=== PATIENT | male | born 1935 | race Caucasian/White ===

== ENCOUNTER → 2018-05-29 | Outpatient (CLI) | payer OTHER ==
[~2018-05-29] MED LIST: ASPI81EC PO; ATOR10 PO; ATOR80 PO; CLOP75 PO; LEVSOD25 PO; METO25ER PO; MULTAQ PO; WARF5 PO; [UNRECOGNIZED DRUG - OTHER] PO
[2018-05-29 19:16] LABS: BASOPHILS ABSOLUTE AUTO 0.02 K/mm3 (0.00-0.23); BASOPHILS PERCENT AUTO 0 % (0-2); EOSINOPHILS ABSOLUTE AUTO 0.01 K/mm3 (0.00-0.68); EOSINOPHILS PERCENT AUTO 0 % (0-6); Hematocrit 38.7 % (37.0-53.0); Hemoglobin 13.1 g/dL (13.5-17.5); IMMATURE GRAN ABSOLUTE AUTO 0.03 K/mm3 (0.00-0.10); IMMATURE GRAN PERCENT AUTO 0 % (0-1); LYMPHOCYTES ABSOLUTE AUTO 0.52 K/mm3 (0.84-5.20); LYMPHOCYTES PERCENT AUTO 8 % (21-46); MONOCYTES ABSOLUTE AUTO 0.08 K/mm3 (0.16-1.47); MONOCYTES PERCENT AUTO 1 % (4-13); Mean Corpuscular HGB 29.4 pg (26.0-34.0); Mean Corpuscular HGB Conc 33.9 g/dL (31.5-36.5); Mean Corpuscular Volume 87 fL (80-100); Mean Platelet Volume 11.8 fL (9.1-12.4); NEUTROPHILS ABSOLUTE AUTO 6.08 K/mm3 (1.96-9.15); NEUTROPHILS PERCENT AUTO 90 % (41-73); RDW Coefficient Variation 12.1 % (11.7-14.2); RDW Standard Deviation 38.7 fL (35.1-46.3); Red Blood Cell Count 4.45 M/mm3 (4.30-5.90); White Blood Cell Count 6.74 K/mm3 (4.00-11.30)
[2018-05-29 19:25] LABS: Platelet Count 45 K/mm3 (150-400)
[2018-05-29 19:32] LABS: Albumin, Blood 3.6 g/dL (3.4-5.0); Albumin/Globulin Ratio 0.9 (0.8-1.8); Bun/Creatinine Ratio 12.6 (12.0-20.0); Calcium, Blood 8.7 mg/dL (8.5-10.1); Creatinine, Blood 1.51 mg/dL (0.60-1.20); Globulin, Blood 3.8 g/dL (2.2-4.0); Potassium, Blood 4.5 mmol/L (3.5-5.5); Total Protein, Blood 7.4 g/dL (6.4-8.2)
== END ==
LOC: LAB 18:32 → LAB SHORT 18:32
PROVIDERS: Physician Assistant
DX: R11.10 Vomiting, unspecified (principal); R53.1 Weakness
CPT/HCPCS: 80053; 85025

== ENCOUNTER 2019-04-10 17:26 | Emergency (ER) | payer OTHER ==
[~2019-04-10] VITALS: Ht 182.9 cm; Wt 81.7 kg
[~2019-04-10 17:26] MED LIST changes: +ATOR20 PO; +DRON400T PO; -LEVSOD25 PO; +LEVSOD75 PO; -MULTAQ PO; -[UNRECOGNIZED DRUG - OTHER] PO
[2019-04-10 17:51] LABS: BASOPHILS ABSOLUTE AUTO 0.04 K/mm3 (0.00-0.23); BASOPHILS PERCENT AUTO 1 % (0-2); EOSINOPHILS ABSOLUTE AUTO 0.35 K/mm3 (0.00-0.68); EOSINOPHILS PERCENT AUTO 8 % (0-6); Hematocrit 36.1 % (37.0-53.0); Hemoglobin 12.1 g/dL (13.5-17.5); IMMATURE GRAN ABSOLUTE AUTO 0.03 K/mm3 (0.00-0.10); IMMATURE GRAN PERCENT AUTO 1 % (0-1); LYMPHOCYTES ABSOLUTE AUTO 1.45 K/mm3 (0.84-5.20); LYMPHOCYTES PERCENT AUTO 31 % (21-46); MONOCYTES ABSOLUTE AUTO 0.23 K/mm3 (0.16-1.47); MONOCYTES PERCENT AUTO 5 % (4-13); Mean Corpuscular HGB 29.4 pg (26.0-34.0); Mean Corpuscular HGB Conc 33.5 g/dL (31.5-36.5); Mean Corpuscular Volume 88 fL (80-100); Mean Platelet Volume 11.4 fL (9.1-12.4); NEUTROPHILS ABSOLUTE AUTO 2.57 K/mm3 (1.96-9.15); NEUTROPHILS PERCENT AUTO 55 % (41-73); Red Blood Cell Count 4.12 M/mm3 (4.30-5.90); White Blood Cell Count 4.67 K/mm3 (4.00-11.30)
[2019-04-10 17:58] LABS: Platelet Count 46 K/mm3 (150-400)
[2019-04-10 18:05] LABS: Alanine Aminotransfer (ALT/SGP 17 U/L (12-78); Albumin, Blood 3.2 g/dL (3.4-5.0); Albumin/Globulin Ratio 0.8 (0.8-1.8); Alk Phos 97 U/L (50-136); Anion Gap 9 mmol/L (6-16); Aspartate Aminotrans (AST/SGOT 13 U/L (12-37); Bilirubin, Total 0.4 mg/dL (0.1-1.0); Blood Urea Nitrogen 25 mg/dL (8-24); Bun/Creatinine Ratio 12.4 (12.0-20.0); CO2, Blood 22 mmol/L (21-32); Calcium, Blood 8.5 mg/dL (8.5-10.1); Chloride, Blood 109 mmol/L (98-108); Creatinine, Blood 2.02 mg/dL (0.60-1.20); Globulin, Blood 3.9 g/dL (2.2-4.0); Glomerular Filtration Rate 33 (60-); Glucose, Blood 118 mg/dL (70-99); Potassium, Blood 3.8 mmol/L (3.5-5.5); Sodium, Blood 140 mmol/L (136-145); Total Protein, Blood 7.1 g/dL (6.4-8.2); Troponin I <0.015 ng/mL (0.000-0.040)
[2019-04-10] MEDS ORDERED: Calcitonin-Sal3.7 ML (18:22)
[2019-04-10] MEDS ORDERED: TRAM50 PO (18:23)
[2019-04-10] MEDS ORDERED: XARELTO2.5 MG PO (18:23)
[2019-04-10] MEDS ORDERED: TAMS.4ER PO (18:26)
== END 2019-04-10 18:47 | disposition home or self-care (01) ==
LOC: ER 17:26
PROVIDERS: Physician Assistant
DX: R55 Syncope and collapse (principal); D69.3 Immune thrombocytopenic purpura; Z79.899 Other long term (current) drug therapy; Z79.01 Long term (current) use of anticoagulants; I25.2 Old myocardial infarction; I48.91 Unspecified atrial fibrillation; E03.9 Hypothyroidism, unspecified; E78.00 Pure hypercholesterolemia, unspecified
CPT/HCPCS: 71046; 80053; 84484; 85025; 93005; 93010; 99284-25

== ENCOUNTER 2023-03-31 11:42 | Inpatient (IN) | payer OTHER ==
[~2023-03-31] VITALS: Ht 170.2 cm; Wt 77.2 kg
[~2023-03-31 11:42] MED LIST changes: +Calcitonin-Sal3.7 ML; +TAMS.4ER PO; +TRAM50 PO; +XARELTO2.5 MG PO
[2023-04-01] VITALS (19 sets, daily range): BP systolic 90–120; BP diastolic 48–75
[2023-04-01] MEDS ORDERED: ELIQUIS2.5 MG PO (10:57)
[2023-04-01] MEDS ORDERED: ACET500 PO (16:28)
[2023-04-01] MEDS ORDERED: OXYC5 PO (16:29)
--- NOTE | 2023-04-01 18:15 | NUR ---
SHIFT SUMMARY PT A&OX4, VSS/RA, TAMARA PO H20, JELLO AND CRACKERS, SLEEPING/WAKENS EASILY, PAIN MANAGED WITH TYLENOL AND TORADOL, AWAITING POST OP VOID. WILL REPORT TO ONCOMING ASHLIE RN.
--- NOTE | 2023-04-01 18:36 | NUR ---
"Spiritual Care | Pt. request. Pt. is awake in bed and welcomes my visit. Pt. is a little unsettled as this hospitalization is the second one on his hip this spring. Pt. verbalizes that he is a man of ernie. Facilitated a life review and considered matters of ernie and belief. Pt. displayed evidence of mild emotion as we considered past relationships. Prayed for Pt. Pt. 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
[2023-04-02 04:25] VITALS: BP 101/58
[2023-04-02 05:15] LABS: BASOPHILS ABSOLUTE AUTO 0.04 K/mm3 (0.00-0.23); BASOPHILS PERCENT AUTO 1 % (0-2); EOSINOPHILS ABSOLUTE AUTO 0.03 K/mm3 (0.00-0.68); EOSINOPHILS PERCENT AUTO 1 % (0-6); Hematocrit 25.4 % (37.0-53.0); Hemoglobin 8.4 g/dL (13.5-17.5); IMMATURE GRAN ABSOLUTE AUTO 0.03 K/mm3 (0.00-0.10); IMMATURE GRAN PERCENT AUTO 1 % (0-1); LYMPHOCYTES ABSOLUTE AUTO 0.79 K/mm3 (0.84-5.20); LYMPHOCYTES PERCENT AUTO 12 % (21-46); MONOCYTES ABSOLUTE AUTO 0.38 K/mm3 (0.16-1.47); MONOCYTES PERCENT AUTO 6 % (4-13); Mean Corpuscular HGB 28.7 pg (26.0-34.0); Mean Corpuscular HGB Conc 33.1 g/dL (31.5-36.5); Mean Corpuscular Volume 87 fL (80-100); NEUTROPHILS ABSOLUTE AUTO 5.17 K/mm3 (1.96-9.15); NEUTROPHILS PERCENT AUTO 80 % (41-73); Platelet Count 61 K/mm3 (150-400); RDW Coefficient Variation 14.5 % (11.7-14.2); RDW Standard Deviation 45.6 fL (35.1-46.3); Red Blood Cell Count 2.93 M/mm3 (4.30-5.90); White Blood Cell Count 6.44 K/mm3 (4.00-11.30)
--- NOTE | 2023-04-02 05:18 | NUR ---
SHIFT SUMMARY PT POD 0 L ALVIN HIP WITH REMOVAL OF HARDWARE. PT HAS RESTED MOST OF THE NIGHT, HE HAS BEEN UP AND AMBULATED TO THE BATHROOM WITH FWW, SLOW TO GET OOB BUT STARTED TO MOVE EASIER ONCE OOB. PT EXPERIENCED SLIGHT NAUSEA AFTER GETTING UP THAT RESOLVED AFTER HE RETURNED TO BED. DRESSING TO LEFT HIP DRY AND INTACT. PT TOLERATING PO INTAKE BUT NOT DRINKING VERY MUCH WATER DESPITE ENCOURAGEMENT TO DO SO. PT HAS NOT YET VOIDED. ATTEPTED SEVERAL TIMES WITHOUT SUCCESS. IVF INFUSING PER EMAR. PT BLADDER SCANNED TWICE THIS SHIFT, LAST SCAN 307 MLS. DISSCUSED WITH SLOT ATTENDANT . POST OP VITALS STABLE. BED IN LOWEST POSITION, CALL LIGHT WITHIN REACH.
[2023-04-02 05:32] LABS: Bun/Creatinine Ratio 15.5 (12.0-20.0); Calcium, Blood 8.4 mg/dL (8.5-10.1); Creatinine, Blood 1.68 mg/dL (0.60-1.20); Potassium, Blood 4.6 mmol/L (3.5-5.5)
[2023-04-02 07:31] VITALS: BP 114/59
[2023-04-02 10:22] VITALS: BP 135/69
[2023-04-02 10:24] VITALS: BP 116/68
--- NOTE | 2023-04-02 10:35 | NUR ---
Pt. is awake in a recliner and welcomes my visit. Pt. is pleasant but displays ocassional emotion, as he shares his life story. Re-establish rapport and consider matters of ernie and belief. Grief support was also given as the Pt. shares of Spouse and siblings who have passed. Pt. displays evidence of trust and engagement. Prayed with Pt. Pt. verbalizes expectation of discharge. Pt. also verbalizes gratitude for the spiritual care visit.
--- NOTE | 2023-04-02 12:17 | NUR ---
DISCHARGE SUMMARY PT A&OX4, VSS/RA, TAMARA PO, VOIDING, AMB SBA FWW/GB, UP TO CHAIR, IV DC'D. DC INS PROVIDED. PT AND FAMILY REP UNDERSTANDING THOSE INSTRUCTIONS INCLUDING ADD AQUACEL DRESSING IF NEEDED/OTHERWISE LEAVE DRESSING IN PLACE-DO NOT REMOVE, FU APPT W/ SURGEON, START ELIQUIS, HAS MEDS AT HOME. LEFT FLOOR VIA WC WITH STENCIL MAKER TO GO HOME WITH FAMILY, WITH ALL PERSONAL POSSESSIONS INCLUDING DC PACKET AND AQUACEL DRESSING.
[2023-04-02] MEDS ORDERED: ELIQUIS5 M2 PO (13:24)
== END 2023-04-02 12:07 | disposition home or self-care (01) | DRG 468 ==
LOC: SURS 04-01 09:58 → PRE IP 04-01 12:30 → SURS 04-01 16:26
PROVIDERS: ADMIT Orthopaedic Surgery
PROC: 30233R1 Transfusion of Nonautologous Platelets into Peripheral Vein, Percutaneous Approach (ICD-10-PCS; 2023-04-01)
PROC: 0SPS0JZ Removal of Synthetic Substitute from Left Hip Joint, Femoral Surface, Open Approach (ICD-10-PCS; 2023-04-01)
PROC: 0SRS0JA Replacement of Left Hip Joint, Femoral Surface with Synthetic Substitute, Uncemented, Open Approach (ICD-10-PCS; principal; 2023-04-01 12:30)
PROC: 30233N1 Transfusion of Nonautologous Red Blood Cells into Peripheral Vein, Percutaneous Approach (ICD-10-PCS; 2023-04-01 12:30)
DX: S72.002K Fracture of unspecified part of neck of left femur, subsequent encounter for closed fracture with nonunion (principal); M16.12 Unilateral primary osteoarthritis, left hip; Z87.891 Personal history of nicotine dependence; Z98.890 Other specified postprocedural states; Z97.8 Presence of other specified devices
CPT/HCPCS: 36415; 72170; 80048; 83735; 85025; 86850; 86900; 86901; 97110; 97161; 97165; 97530; 97535; A9270; C1776; J0171; J0690; J0735; J1885; J2704; J2710; J2795; J3010; J7040; J7120; P9053

== ENCOUNTER 2023-04-02 13:09 | Inpatient (IN) | payer OTHER ==
[~2023-04-02] VITALS: Ht 182.9 cm; Wt 78.1 kg
[~2023-04-02 13:09] MED LIST changes: +ACET500 PO; +ELIQUIS2.5 MG PO; +OXYC5 PO
[2023-04-02] MEDS ORDERED: ELIQUIS5 M2 PO (13:24)
[2023-04-02 15:35] LABS: BASOPHILS ABSOLUTE AUTO 0.03 K/mm3 (0.00-0.23); BASOPHILS PERCENT AUTO 0 % (0-2); EOSINOPHILS ABSOLUTE AUTO 0.03 K/mm3 (0.00-0.68); EOSINOPHILS PERCENT AUTO 0 % (0-6); Hematocrit 25.2 % (37.0-53.0); Hemoglobin 8.2 g/dL (13.5-17.5); IMMATURE GRAN ABSOLUTE AUTO 0.03 K/mm3 (0.00-0.10); IMMATURE GRAN PERCENT AUTO 0 % (0-1); LYMPHOCYTES ABSOLUTE AUTO 0.61 K/mm3 (0.84-5.20); LYMPHOCYTES PERCENT AUTO 8 % (21-46); MONOCYTES ABSOLUTE AUTO 0.42 K/mm3 (0.16-1.47); MONOCYTES PERCENT AUTO 5 % (4-13); Mean Corpuscular HGB 28.5 pg (26.0-34.0); Mean Corpuscular HGB Conc 32.5 g/dL (31.5-36.5); Mean Corpuscular Volume 88 fL (80-100); Mean Platelet Volume 10.5 fL (9.1-12.4); NEUTROPHILS ABSOLUTE AUTO 6.73 K/mm3 (1.96-9.15); NEUTROPHILS PERCENT AUTO 86 % (41-73); RDW Coefficient Variation 14.5 % (11.7-14.2); RDW Standard Deviation 46.9 fL (35.1-46.3); Red Blood Cell Count 2.88 M/mm3 (4.30-5.90); White Blood Cell Count 7.85 K/mm3 (4.00-11.30)
[2023-04-02 15:45] LABS: Albumin, Blood 2.8 g/dL (3.4-5.0); Bilirubin, Total 0.5 mg/dL (0.1-1.0); Bun/Creatinine Ratio 15.8 (12.0-20.0); Calcium, Blood 8.3 mg/dL (8.5-10.1); Creatinine, Blood 1.65 mg/dL (0.60-1.20); Globulin, Blood 2.8 g/dL (2.2-4.0); Potassium, Blood 4.6 mmol/L (3.5-5.5); Total Protein, Blood 5.6 g/dL (6.4-8.2)
[2023-04-02 15:49] LABS: Platelet Count 46 K/mm3 (150-400)
[2023-04-02 17:10] LABS: Source, Urine Clean Catch
[2023-04-02 17:18] LABS: Appearance, Urine Clear (Clear); Bilirubin, Urine Neg (Neg); Blood, Urine Neg (Neg); Color, Urine Yellow (P-Yellow); Glucose Qualitative, Urine Neg (Neg); Ketones, Urine 1+ (Neg); Leukocyte Esterase, Urine Neg (Neg); Nitrite, Urine Neg (Neg); Protein, Urine Neg (Neg); Urobilinogen, Urine NORM (Normal)
[2023-04-02 22:20] VITALS: BP 120/61
--- NOTE | 2023-04-02 22:34 | NUR ---
PT ARRIVAL PT ARRIVED TO THE FLOOR AT APPROX 2220- A/0 X4. VITAL SIGNS TAKEN BY INTERIOR SYSTEMS CARPENTER. PT CHANGED INTO GOWN AND NEW ATTENDS, AND WARM BLANKETS GIVEN. PAIN REPORTED IN L HIP, NOT REQUESTING PAIN MEDICATION AT THIS TIME.
[2023-04-03] VITALS (13 sets, daily range): BP systolic 92–124; BP diastolic 51–73
[2023-04-03 04:20] LABS: Hematocrit 21.7 % (37.0-53.0); Hemoglobin 7.1 g/dL (13.5-17.5); Mean Corpuscular HGB 28.5 pg (26.0-34.0); Mean Corpuscular HGB Conc 32.7 g/dL (31.5-36.5); Mean Corpuscular Volume 87 fL (80-100); Mean Platelet Volume 11.2 fL (9.1-12.4); RDW Coefficient Variation 14.5 % (11.7-14.2); Red Blood Cell Count 2.49 M/mm3 (4.30-5.90); White Blood Cell Count 5.07 K/mm3 (4.00-11.30)
[2023-04-03 04:41] LABS: Calcium, Blood 8.1 mg/dL (8.5-10.1); Creatinine, Blood 1.57 mg/dL (0.60-1.20); Magnesium, Blood 1.7 mg/dL (1.6-2.4)
[2023-04-03 04:45] LABS: Platelet Count 41 K/mm3 (150-400)
--- NOTE | 2023-04-03 11:45 | NUR ---
Pt. is awake in bed and welcomes my visit. Family members are present. Pt. is pleasant. Pt. and family updated this cancer spec regarding Pts. readmission. Re-established rapport and facilitated encouraging conversation. Pt. displays evidence of being engaged and aware. Will monitor Pt. and remain available to Pt. and family.
[2023-04-03 13:53] LABS: Percent Saturation 13.1 % (20.0-50.0)
[2023-04-03 13:53] LABS: Hematocrit 27.4 % (37.0-53.0); Hemoglobin 8.9 g/dL (13.5-17.5)
--- NOTE | 2023-04-03 17:59 | NUR ---
SHIFT SUMMARY: POD 2 LEFT HIP REPAIR- POST FALL PATIENT IS A&OX4. HIS SBP HAVE BEEN BETWEEN HIGH 90'S TO LOW 100'S WITH NO SYMPTOMS OF DIZZINESS/LIGHTHEADEDNESS. THIS NURSE NOTIFIED DR. BARBOSA WHO ORDERED PO PRO-AMATINE. HIS HEART RATE IS IN AFIB BETWEEN 80'S-LOW 100 BPM. HIS LEFT HIP HAS A PRIMEO DRESSING THAT IS C/D/I. HE DENIES NUMBNESS OR TINGLING. HE IS ABLE TO MOVE ALL FINGERS AND TOES WHEN ASKED. HE IS TOLERATING PO INTAKE AND IS VOIDING. PATIENT DID RECIEVE 1 UNIT OF BLOOD SINCE HIS HGB WAS 7.1 BUT AFTER THE UNIT IT IS 8.9 NOW. HIS LEFT HIP IS WBAT. HE DID WORK WITH PT THIS AFTERNOON BUT WAS A 2 PERSON MODERATE ASSIST TO RECLINER CHAIR WITH FWW AND GAIT BELT. PATIENT IS STILL SITTING IN THE RECLINER CHAIR WITH LEGS ELEVATED AND CALL LIGHT IN REACH. FAMILY AT BEDSIDE. THE PLAN IS TO REPEAT LABS IN THE MORNING AND TO WORK WITH PHYSICAL THERAPY AGAIN TOMORROW TO BE RE-EVALUATED.
[2023-04-04 04:50] LABS: BASOPHILS ABSOLUTE AUTO 0.03 K/mm3 (0.00-0.23); BASOPHILS PERCENT AUTO 0 % (0-2); EOSINOPHILS ABSOLUTE AUTO 0.18 K/mm3 (0.00-0.68); EOSINOPHILS PERCENT AUTO 3 % (0-6); Hematocrit 24.9 % (37.0-53.0); Hemoglobin 8.3 g/dL (13.5-17.5); IMMATURE GRAN ABSOLUTE AUTO 0.03 K/mm3 (0.00-0.10); IMMATURE GRAN PERCENT AUTO 0 % (0-1); LYMPHOCYTES ABSOLUTE AUTO 1.24 K/mm3 (0.84-5.20); LYMPHOCYTES PERCENT AUTO 17 % (21-46); MONOCYTES ABSOLUTE AUTO 0.47 K/mm3 (0.16-1.47); MONOCYTES PERCENT AUTO 7 % (4-13); Mean Corpuscular HGB 28.8 pg (26.0-34.0); Mean Corpuscular HGB Conc 33.3 g/dL (31.5-36.5); Mean Corpuscular Volume 87 fL (80-100); Mean Platelet Volume 11.2 fL (9.1-12.4); NEUTROPHILS ABSOLUTE AUTO 5.17 K/mm3 (1.96-9.15); NEUTROPHILS PERCENT AUTO 73 % (41-73); Platelet Count 52 K/mm3 (150-400); RDW Coefficient Variation 14.3 % (11.7-14.2); RDW Standard Deviation 45.4 fL (35.1-46.3); Red Blood Cell Count 2.88 M/mm3 (4.30-5.90); White Blood Cell Count 7.12 K/mm3 (4.00-11.30)
[2023-04-04 04:56] VITALS: BP 97/57
[2023-04-04 05:06] LABS: Albumin, Blood 2.2 g/dL (3.4-5.0); Anion Gap 5 mmol/L (6-16); Blood Urea Nitrogen 23 mg/dL (8-24); Bun/Creatinine Ratio 15.1 (12.0-20.0); CO2, Blood 25 mmol/L (21-32); Calcium, Blood 8.2 mg/dL (8.5-10.1); Chloride, Blood 107 mmol/L (98-108); Creatinine, Blood 1.52 mg/dL (0.60-1.20); Glomerular Filtration Rate 44 (60-); Glucose, Blood 102 mg/dL (70-99); Phosphorus, Blood 2.9 mg/dL (2.5-4.9); Potassium, Blood 4.4 mmol/L (3.5-5.5); Sodium, Blood 137 mmol/L (136-145)
--- NOTE | 2023-04-04 05:52 | NUR ---
SHIFT SUMMARY A/O X4- BEDREST THROUGHOUT SHIFT. NO ACUTE CHANGES THROUGHOUT SHIFT. VITAL SIGNS STABLE. NO PAIN REPORTED. WILL REPORT TO ONCOMING RN.
[2023-04-04 07:34] VITALS: BP 100/58
[2023-04-04 07:35] VITALS: BP 105/53
[2023-04-04 11:13] VITALS: BP 102/68
[2023-04-04 12:40] VITALS: BP 107/55
[2023-04-04 14:05] VITALS: BP 117/58
[2023-04-04] MEDS ORDERED: TRAM50 PO (14:31)
[2023-04-04] MEDS ORDERED: MIDO5 PO (14:31)
--- NOTE | 2023-04-04 16:18 | NUR ---
DISCHARGE PT IS A/O X4. VSS, BLOOD PRESSURES PREVIOUSLY SOFT, CURRENTLY WNL, AND BEING TREATED WITH MIDIDRINE PER ORDERS. PT CURRENTLY DENIES N/T AND DIZZINESS WILL CONTINUE MIDIDRINE RX AT HOME. 02 >90% ON R/A. PT IS POD3 AND READMITTED FOR SYNCOPAL EPISODE AFTER ARRIVING AT HOME. WORKED WITH PHYSICAL THERAPY TODAY. PAIN IS MANAGED WITH TRAMADOL PER EMAR. FAMILY REPORTED HAVING ALL NECESSARY AMBULATORY AND SUPPORTIVE EQUIPMENT. RX WERE SENT TO THE PREFERRED PHARMACY. DISCHARGE TEACHING WAS PROVIDED TO THE PT AND HIS SON. THEY BOTH EXHIBITED UNDERSTANDING AND ASKED QUESTIONS APPROPRIATELY. PT WAS ESCORTED OUT VIA WHEEL CHAIR BY HOSPITAL STAFF AND TRANSPORTED HOME BY HIS SON.
== END 2023-04-04 15:25 | disposition home health service (06) | DRG 812 ==
LOC: ER 13:09 → SURS 13:10 → ER 13:10 → SURS 21:28
PROVIDERS: Emergency Medicine; Family Medicine; Nurse Practitioner Acute Care; Student in an Organized Health Care Education/Training Program; ADMIT Internal Medicine
PROC: 30233N1 Transfusion of Nonautologous Red Blood Cells into Peripheral Vein, Percutaneous Approach (ICD-10-PCS; principal; 2023-04-03)
DX: D62 Acute posthemorrhagic anemia (principal); I95.9 Hypotension, unspecified; E03.9 Hypothyroidism, unspecified; D69.6 Thrombocytopenia, unspecified; N40.0 Benign prostatic hyperplasia without lower urinary tract symptoms; I48.91 Unspecified atrial fibrillation; E86.0 Dehydration; I25.10 Atherosclerotic heart disease of native coronary artery without angina pectoris; N18.30 Chronic kidney disease, stage 3 unspecified; I49.9 Cardiac arrhythmia, unspecified; E78.5 Hyperlipidemia, unspecified; Z85.528 Personal history of other malignant neoplasm of kidney; Z95.1 Presence of aortocoronary bypass graft; Z79.01 Long term (current) use of anticoagulants; Z90.5 Acquired absence of kidney; I25.2 Old myocardial infarction; Z96.642 Presence of left artificial hip joint; Z86.79 Personal history of other diseases of the circulatory system; Z79.899 Other long term (current) drug therapy; Z79.02 Long term (current) use of antithrombotics/antiplatelets; Z88.8 Allergy status to other drugs, medicaments and biological substances
CPT/HCPCS: 36415; 36416; 51798; 73502; 80048; 80053; 80069; 81003; 82607; 82728; 82746; 83540; 83550; 83735; 84443; 84484; 85014; 85018; 85025; 85027; 86850; 86900; 86901; 86923; 93005; 93010; 96361; 96374; 97110; 97162; 97530; 99285-25; A9270; G0378; J2405; J7030; J7120; P9016